=== PATIENT | male | born 1995 | race Two or more races ===

== ENCOUNTER 2023-01-10 14:13 | Outpatient (REF) | payer OTHER, SELFPAY ==
[2023-01-10 17:26] LABS: MANUAL DIFF FLAG NO
[2023-01-10 17:50] LABS: Alanine Aminotransferase 15 U/L (0-40); Albumin Level 4.4 g/dL (3.5-5.0); Alkaline Phosphatase 56 U/L (39-117); Anion Gap 13 (12-20); Aspartate Amino Transferase 19 U/L (5-37); Bilirubin Total 1.2 mg/dL (0.0-1.0); Blood Urea Nitrogen 19 mg/dL (9-16); Calcium 9.7 mg/dL (8.4-10.2); Carbon Dioxide 28 mmol/L (22-29); Chloride 105 mmol/L (96-108); Cholesterol 190 mg/dL (<200); Estimated Glomerular Filt Rate > 60; Glucose Fasting 76 mg/dL (60-99); HDL Cholesterol 40 mg/dL (>40); LDL Cholesterol Calculated 129 mg/dL (<100); Potassium 3.5 mmol/L (3.3-5.1); Sodium 142 mmol/L (135-145); Total Protein 7.4 g/dL (6.5-8.0); Triglycerides 105 mg/dL (<150)
[2023-01-10 18:04] LABS: TSH reflex Free T4 1.89 uIU/mL (0.32-4.0)
[2023-01-10 18:10] LABS: Basophils Absolute Auto 0.1 X10*3/uL (0.0-0.2); Basophils Percent Auto 0.9 % (0-2); Eosinophils Absolute Auto 0.1 X10*3/uL (0.0-0.4); Hemoglobin 15.4 g/dl (14.0-18.0); Imm Gran Abs Auto 0.02 X10*3/uL (0.00-0.03); Imm Gran Pct Auto 0.3 % (0.0-0.4); Lymphocytes Absolute Auto 2.5 X10*3/uL (1.2-4.9); Lymphocytes Percent Auto 32.5 % (20-40); Mean Corpuscular HGB Conc 33.5 g/dl (31.0-36.0); Mean Corpuscular Volume 98.7 fL (80.0-98.0); Mean Platelet Volume 12.8 fL (9.4-12.4); Monocytes Absolute Auto 0.6 X10*3/uL (0.1-1.2); Monocytes Percent Auto 7.5 % (2-11); Neutrophils Absolute Auto 4.5 x10*3/uL (2.0-8.3); Neutrophils Percent Auto 57.8 % (45-73); Platelet Count 251 X10*3/uL (160-400); Red Blood Count 4.66 X10*6/uL (4.60-5.80); Red Cell Distribution Width 11.9 % (11.0-16.0); White Blood Count 7.7 X10*3/uL (4.8-10.8)
[2023-01-11 13:56] LABS: CT PCR NOT DETECTED (Not Detect.); NG PCR NOT DETECTED (Not Detect.)
[2023-01-13 05:36] LABS: HIV AB/AG Nonreactive (Nonreactive); HIV Num 1 0.06 S/CO (0.00-0.99); ~HepC Num1 0.06 S/CO (0.00-0.79); ~Hepatitis C Antibody Nonreactive (Nonreactive)
[2023-01-13 05:46] LABS: Syphilis Screen Nonreactive (Nonreactive)
== END 2023-01-10 14:14 | disposition home or self-care (01) ==
LOC: HO.CHCLDS 14:13
PROVIDERS: Visit Provider Family Medicine
DX: Z11.4 Encounter for screening for human immunodeficiency virus [HIV] (principal); E66.9 Obesity, unspecified; Z68.31 Body mass index [BMI] 31.0-31.9, adult; Z20.2 Contact with and (suspected) exposure to infections with a predominantly sexual mode of transmission; Z13.29 Encounter for screening for other suspected endocrine disorder
CPT/HCPCS: 0353U; 80053; 80061; 84443; 85025; 86780; 86803; 87389

== ENCOUNTER 2023-06-02 14:57 | Outpatient (REF) | payer OTHER, SELFPAY ==
[2023-06-02 18:00] LABS: Anion Gap 10 (12-20); Blood Urea Nitrogen 14 mg/dL (9-16); Calcium 9.6 mg/dL (8.4-10.2); Carbon Dioxide 29 mmol/L (22-29); Chloride 107 mmol/L (96-108); Estimated Glomerular Filt Rate > 60; Glucose Random 87 mg/dL (60-115); Potassium 3.9 mmol/L (3.3-5.1); Sodium 142 mmol/L (135-145)
[2023-06-03 04:21] LABS: Syphilis Screen Nonreactive (Nonreactive)
[2023-06-03 04:41] LABS: HIV AB/AG Nonreactive (Nonreactive); HIV Num 1 0.05 S/CO (0.00-0.99); ~HepC Num1 0.12 S/CO (0.00-0.79); ~Hepatitis C Antibody Nonreactive (Nonreactive)
[2023-06-03 07:07] LABS: CT PCR NOT DETECTED (Not Detect.); NG PCR NOT DETECTED (Not Detect.)
== END 2023-06-02 14:58 | disposition home or self-care (01) ==
LOC: HO.CHCLDS 14:57
PROVIDERS: Visit Provider Family Medicine
DX: Z11.4 Encounter for screening for human immunodeficiency virus [HIV] (principal); Z20.2 Contact with and (suspected) exposure to infections with a predominantly sexual mode of transmission
CPT/HCPCS: 0353U; 36415; 80048; 86780; 86803; 87389

== ENCOUNTER 2023-07-31 10:44 | Outpatient (REF) | payer OTHER, SELFPAY ==
[2023-07-31 14:29] LABS: MANUAL DIFF FLAG NO
[2023-07-31 14:31] LABS: Basophils Absolute Auto 0.1 X10*3/uL (0.0-0.2); Basophils Percent Auto 0.7 % (0-2); Eosinophils Absolute Auto 0.1 X10*3/uL (0.0-0.4); Hematocrit 46.9 % (42.0-52.0); Imm Gran Abs Auto 0.02 X10*3/uL (0.00-0.03); Imm Gran Pct Auto 0.3 % (0.0-0.4); Lymphocytes Absolute Auto 1.8 X10*3/uL (1.2-4.9); Lymphocytes Percent Auto 25.2 % (20-40); Mean Corpuscular HGB Conc 34.1 g/dl (31.0-36.0); Mean Corpuscular Hemoglobin 33.9 pg (27.0-33.0); Mean Corpuscular Volume 99.4 fL (80.0-98.0); Mean Platelet Volume 12.5 fL (9.4-12.4); Monocytes Absolute Auto 0.5 X10*3/uL (0.1-1.2); Monocytes Percent Auto 7.6 % (2-11); Neutrophils Absolute Auto 4.6 x10*3/uL (2.0-8.3); Neutrophils Percent Auto 64.2 % (45-73); Platelet Count 252 X10*3/uL (160-400); Red Blood Count 4.72 X10*6/uL (4.60-5.80); Red Cell Distribution Width 12.2 % (11.0-16.0); White Blood Count 7.2 X10*3/uL (4.8-10.8)
[2023-07-31 14:53] LABS: Alanine Aminotransferase 22 U/L (0-40); Albumin Level 4.5 g/dL (3.5-5.0); Alkaline Phosphatase 75 U/L (39-117); Anion Gap 12 (12-20); Aspartate Amino Transferase 23 U/L (5-37); Bilirubin Total 0.8 mg/dL (0.0-1.0); Blood Urea Nitrogen 15 mg/dL (9-16); Calcium 9.5 mg/dL (8.4-10.2); Carbon Dioxide 25 mmol/L (22-29); Chloride 109 mmol/L (96-108); Cholesterol 160 mg/dL (<200); Estimated Glomerular Filt Rate > 60; Glucose Random 84 mg/dL (60-115); HDL Cholesterol 33 mg/dL (>40); LDL Cholesterol Calculated 109 mg/dL (<100); Potassium 3.8 mmol/L (3.3-5.1); Sodium 142 mmol/L (135-145); Total Protein 7.6 g/dL (6.5-8.0); Triglycerides 94 mg/dL (<150)
[2023-07-31 16:18] LABS: CT PCR NOT DETECTED (Not Detect.); NG PCR NOT DETECTED (Not Detect.)
[2023-08-01 04:28] LABS: Syphilis Screen Nonreactive (Nonreactive)
[2023-08-01 04:42] LABS: HBS Num1 0.56 mIU/mL (0-7.99); HBc Num1 0.11 S/CO (0.00-0.79); HBsAGNum1 0.51 S/CO (0.00-0.99); HIV AB/AG Nonreactive (Nonreactive); HIV Num 1 0.05 S/CO (0.00-0.99); Hepatitis B Core Antibody Nonreactive (Nonreactive); Hepatitis B Surface Antigen Negative (Negative); ~HepC Num1 0.12 S/CO (0.00-0.79); ~Hepatitis B Surface Antibody NONREACTIVE (Nonreactive); ~Hepatitis C Antibody Nonreactive (Nonreactive)
== END 2023-07-31 10:45 | disposition home or self-care (01) ==
LOC: HO.CHCLDS 10:44
PROVIDERS: Visit Provider Family Medicine
DX: Z11.3 Encounter for screening for infections with a predominantly sexual mode of transmission (principal); E66.9 Obesity, unspecified; Z68.31 Body mass index [BMI] 31.0-31.9, adult
CPT/HCPCS: 0353U; 36415; 80053; 80061; 85025; 86704; 86706; 86780; 86803; 87340; 87389

== ENCOUNTER 2024-09-02 10:58 | Outpatient (REF) | payer OTHER, SELFPAY ==
[2024-09-02 11:32] LABS: MANUAL DIFF FLAG NO
[2024-09-02 11:35] LABS: Basophils Percent Auto 0.7 % (0-2); Eosinophils Absolute Auto 0.1 X10*3/uL (0.0-0.4); Eosinophils Percent Auto 1.8 % (0-4); Hematocrit 47.3 % (42.0-52.0); Hemoglobin 16.5 g/dl (14.0-18.0); Imm Gran Abs Auto 0.01 X10*3/uL (0.00-0.03); Imm Gran Pct Auto 0.2 % (0.0-0.4); Lymphocytes Absolute Auto 1.7 X10*3/uL (1.2-4.9); Lymphocytes Percent Auto 36.4 % (20-40); Mean Corpuscular HGB Conc 34.9 g/dl (31.0-36.0); Mean Corpuscular Hemoglobin 33.8 pg (27.0-33.0); Mean Corpuscular Volume 96.9 fL (80.0-98.0); Monocytes Absolute Auto 0.4 X10*3/uL (0.1-1.2); Monocytes Percent Auto 7.9 % (2-11); Neutrophils Absolute Auto 2.4 x10*3/uL (2.0-8.3); Platelet Count 222 X10*3/uL (160-400); Red Blood Count 4.88 X10*6/uL (4.60-5.80); Red Cell Distribution Width 11.9 % (11.0-16.0); White Blood Count 4.6 X10*3/uL (4.8-10.8)
[2024-09-02 12:02] LABS: Alanine Aminotransferase 20 U/L (0-40); Albumin Level 4.5 g/dL (3.5-5.0); Alkaline Phosphatase 73 U/L (39-117); Anion Gap 10 (12-20); Aspartate Amino Transferase 23 U/L (5-37); Bilirubin Total 1.3 mg/dL (0.0-1.0); Blood Urea Nitrogen 15 mg/dL (9-16); Carbon Dioxide 26 mmol/L (22-29); Chloride 108 mmol/L (96-108); Cholesterol 170 mg/dL (<200); Estimated Glomerular Filt Rate > 60; Glucose Random 86 mg/dL (60-115); HDL Cholesterol 34 mg/dL (>40); LDL Cholesterol Calculated 115 mg/dL (<100); Potassium 3.9 mmol/L (3.3-5.1); Sodium 140 mmol/L (135-145); Total Protein 7.2 g/dL (6.5-8.0); Triglycerides 107 mg/dL (<150)
--- OUTSIDE RECORDS SUMMARY | 2024-09-02 13:03 | XMS_ITS | Clinical Summary ---
Author Organization [employer] [facility] ity Address [address] [place] [address] Care Team Providers Care Residential Care Officer Name Role Phone Unavailable Primary Care Provider Unavailabl e Social History Tobacco Use Types Packs/Day Years Used Date Smoking Tobacco: Never Assessed Sex and Gender Information Value Date Recorded Sex Assigned at Not on file Legal Sex Male 10:47 PM EST Gender Identity Not on file Sexual Orientation Not on file Plan of Treatment Health Maintenance Due Date Last Done Comments DTaP,Tdap,and Td Vaccines (1 - Tdap) 02/17/2012 Hepatitis B Vaccines (1 of 3 - 19+ 3-dose series) 02/17/2012 COVID-19 Vaccine (2023-2 5 season) 2023 Influenza Vaccine (Season Ended) 2024 HIB Vaccines Aged Out No longer eligi ble based on patient's age to complete this topic HPV Vaccines Aged Out No longer eligi ble based on patient's age to complete this topic Hepatitis A Vaccines Aged Out No long er eligible based on patient's age to complete this topic IPV Vaccines Aged Out No longer eligi ble based on patient's age to complete this topic MMR Vaccines Aged Out No longer eligi ble based on patient's age to complete this topic Meningococcal ACWY Vaccine Aged Out N o longer eligible based on patient's age to complete this topic Meningococcal B Vaccine Aged Out No l onger eligible based on patient's age to complete this topic Pneumococcal Vaccine: Pediat rics (0 to 5 Years) and At-Risk Patients (6 to 64 Years) Aged Out No longer eligible b ased on patient's age to complete this topic RSV Immunization Patients Un carrie 20 months Aged Out No longer eligible b ased on patient's age to complete this topic Varicella Vaccines Aged Out No longer eligible based on patient's age to complete this topic
[2024-09-03 08:30] LABS: HBS Num1 0.54 mIU/mL (0-7.99); HBc Num1 0.07 S/CO (0.00-0.79); HBsAGNum1 0.45 S/CO (0.00-0.99); HIV AB/AG Nonreactive (Nonreactive); HIV Num 1 0.06 S/CO (0.00-0.99); Hepatitis B Core Antibody Nonreactive (Nonreactive); Hepatitis B Surface Antigen Negative (Negative); ~HepC Num1 0.15 S/CO (0.00-0.79); ~Hepatitis B Surface Antibody NONREACTIVE (Nonreactive); ~Hepatitis C Antibody Nonreactive (Nonreactive)
[2024-09-03 08:45] LABS: Syphilis Screen Nonreactive (Nonreactive)
== END 2024-09-02 10:59 | disposition home or self-care (01) ==
LOC: HO.CHCLDS 10:58
PROVIDERS: Visit Provider Family Medicine
DX: Z00.00 Encounter for general adult medical examination without abnormal findings (principal); Z20.2 Contact with and (suspected) exposure to infections with a predominantly sexual mode of transmission
CPT/HCPCS: 36415; 80053; 80061; 85025; 86704; 86706; 86780; 86803; 87340; 87389

== ENCOUNTER 2025-01-07 10:10 | Outpatient (REF) | payer OTHER, SELFPAY ==
--- OUTSIDE RECORDS SUMMARY | 2025-01-07 11:31 | XMS_ITS | Encounter Summary ---
Author Organization [employer] Address [address] [place] [address] 7 [place] [address] Care Team Providers Care Multicultural Services Librarian Name Role Phone Natalya Mahajan MD Primary Care Provider [phone] Reason for Visit * Reason Comments Med Refill Encounter Details Date Type Department Care Team (Late st Contact Info) Description 08/20/2022 Refill [facility] MED & PEDS [address] [place], [place] [phone] Natalya Mahajan MD [address] [place] [address] Social History Tobacco Use Types Packs/Day Years Used Date Smoking Tobacco: Never Assessed Depression Answer Date Recorded Patient Health Questionnaire-9 Score 0 07/29/2022 Depression Answer Date Recorded Patient Health Questionnaire-2 Score 0 07/29/2022 Sex and Gender Information Value Date Recorded Sex Assigned at Male 01/07/2022 10:39 AM EDT Legal Sex Male 10:39 AM EDT Gender Identity Male 01/07/2022 10:39 AM EDT Sexual Orientation Bisexual 01/07/2022 10 :39 AM EDT COVID-19 Exposure Response Date Recorded In the last 10 days, have yo u been in contact with someone who was confirmed or suspected to have Coronavirus/COVID-19? No / Unsure 07/29/2022 10:11 AM EDT documented as of this encounter Plan of Treatment Not on file documented as of this encounter Visit Diagnoses Not on filedocumented in this encounter Additional Health Concerns Assessment Noted Time PHQ-9 Depression Total Score: 0 07/30/19 23 10:23 AM EDT documented as of this encounter Care Teams Multicultural Services Librarian Relationship Specialty Start Date End Date Natalya Mahajan MD [address] [place] [address] PCP - General Family Medicine 11/14/20 documented as of this encounter
--- OUTSIDE RECORDS SUMMARY | 2025-01-07 11:31 | XMS_ITS | Encounter Summary ---
Author Organization [employer] Address [address] [facility] 7 [place] [address] Care Team Providers Care High School Science Tutor Name Role Phone Natalya Mahajan MD Primary Care Provider [phone] Reason for Visit * Reason Comments Med Refill Encounter Details Date Type Department Care Team ([facility] st Contact Info) Description 11/29/2023 Refill [facility] CHC MED & PEDS [address] [place], [place] [phone] Natalya Mahajan MD [address] [place] [address] Social History Tobacco Use Types Packs/Day Years Used Date Smoking Tobacco: Never Passive Smoke Exposure: Never Smokeless Tobacco: Never Alcohol Use Standard Drinks/Week Comments Never 0 (1 standard drink = 0.6 oz pur e alcohol) Depression Answer Date Recorded Patient Health Questionnaire-9 Score 0 07/29/2022 Housing Stability Answer Date Recorded What is your housing situation today? I have jake bear 01/01/[address] you li ve. Do you have problems with any of the following? None of the above 01/01/2023 Food Insecurity Answer Date Recorded Within the past 12 months, y ou worried that your food would run out before you got money to buy more: Never True 01/01/2023 Within the past 12 months,th e food you bought just didn't last and you didn't have enough money to get more: Never True Transportation Answer Date Recorded In the past 12 months, has l ack of transportation kept you from medical appts, meetings, work or from getting things needed for daily living? No 01/01/2023 Utilities Answer Date Recorded In the past 12 months, has t he electric, gas, oil or water company threatened to shut off services in your home? No 01/01/2023 Depression Answer Date Recorded Patient Health Questionnaire-2 Score 0 07/29/2022 Sex and Gender Information Value Date Recorded Sex Assigned at Male 01/07/2022 10:39 AM EDT Legal Sex Male 10:39 AM EDT Gender Identity Male 01/07/2022 10:39 AM EDT Sexual Orientation Bisexual 01/07/2022 10 :39 AM EDT documented as of this encounter Miscellaneous Notes * Telephone Encounter - Natalya Mahajan MD - 12/02/2023 11:22 AM EDT Already sent * Telephone Encounter - Natalya Mahajan MD - 12/02/2023 11:22 AM EDT I was already sent documented in this encounter Plan of Treatment Not on file documented as of this encounter Visit Diagnoses Not on filedocumented in this encounter Additional Health Concerns Assessment Noted Time PHQ-9 Depression Total Score: 0 07/30/19 23 10:23 AM EDT documented as of this encounter Care Teams High School Science Tutor Relationship Specialty Start Date End Date Natalya Mahajan MD [address] [place] [address] PCP - General Family Medicine 11/14/20 documented as of this encounter
--- OUTSIDE RECORDS SUMMARY | 2025-01-07 11:31 | XMS_ITS | Encounter Summary ---
Author Organization [employer] Address [address] [facility] 7 [place] [address] Care Team Providers Care Mate First Name Role Phone Natalya Mahajan MD Primary Care Provider [phone] Encounter Details Date Type Department Care Team (Late st Contact Info) Description 05/05/2024 Orders Only [facility] MEDICINE [address] [place], [place] [phone] Morenita Laureano NP [address] [place], [place] [phone] Social History Tobacco Use Types Packs/Day Years Used Date Smoking Tobacco: Never Passive Smoke Exposure: Never Smokeless Tobacco: Never Alcohol Use Standard Drinks/Week Comments Never 0 (1 standard drink = 0.6 oz pur e alcohol) Depression Answer Date Recorded Patient Health Questionnaire-9 Score 0 07/29/2022 Housing Stability Answer Date Recorded What is your housing situation today? I have jakeraffaele bear 01/01/[address] you [...] documented as of this encounter Care Teams Mate First Relationship Specialty Start Date End Date Natalya Mahajan MD [address] [place] [address] PCP - General Family Medicine 11/14/20 documented as of this encounter
--- OUTSIDE RECORDS SUMMARY | 2025-01-07 11:31 | XMS_ITS | Encounter Summary ---
Author Organization [employer] Address [address] [facility] [address] [place] [address] Care Team Providers Care Scallop Shucker Name Role Phone Natalya Mahajan MD Primary Care Provider [phone] Reason for Visit * Reason Onset Date Comments Nurse Triage 01/14/2024 Encounter Details Date Type Department Care Team ([facility] st Contact Info) Description 01/14/2024 Telephone [facility] CHC MED & PEDS [address] [place] [address] Natalya Mahajan MD [address] [place] [address] Nurse Triage Social History Tobacco Use Types Packs/Day Years [...] encounter Miscellaneous Notes * Telephone Encounter - Deedee Marlow RN - 01/14/2024 12:13 PM EST Triage call [place] [id number]. Pt is at work during call with noise making it diffcult to hear at times. Pt reports a skin lump/rash on right side , hip area, left leg , thigh/knee . Pt describes this as several lumps , red, bumpyareas and when scratched they become large. Pt reports these areas are very itchy like cracking skin . Pt reports has had this before and it was told to Pt it was fungal in nature. Pt is requesting to be seen by provider. Pt is advised to come to [facility] today open till 8pm. Address [address] [facility] in [place] . Pt agrees with this disposition . Insurance is verified as active. Protocol Used: Rash or Redness - Localized (Adult) Protocol-Based Disposition: See in Office or Video Visit within 3 Days Video visit not offered Positive Triage Question: * Localized rash present > 7 days * All higher-acuity triage questions were negative Care Advice Discussed: * Reassurance and Education - Mild Localized Rash * Reasons To Call Back - Rash spreads or becomes worse - Rash lasts longer than 1 week - You become worse * Telephone Encounter - Megan Rosado - 01/14/2024 11:28 AM EST Symptom: Skin Lump Outcome: Schedule an appointment to be seen within 3 days Reason: Caller denied all higher acuity questions The caller accepted this outcome. documented in this encounter Plan of Treatment Not on file documented as of this encounter Visit Diagnoses Not on filedocumented in this encounter Additional Health Concerns Assessment Noted Time PHQ-9 Depression Total Score: 0 07/30/19 23 10:23 AM EDT documented as of this encounter Care Teams Scallop Shucker Relationship Specialty Start Date End Date Natalya Mahajan MD [address] [place] [address] PCP - General Family Medicine 11/14/20 documented as of this encounter
--- OUTSIDE RECORDS SUMMARY | 2025-01-07 11:31 | XMS_ITS | Encounter Summary ---
Author Organization [employer] Address [address] [facility] [address] [place] [address] Care Team Providers Care Trolley Car Operator Name Role Phone Natalya Mahajan MD Primary Care Provider [phone] Encounter Details Date Type Department Care Team (Late st Contact Info) Description 04/13/2024 Orders Only [facility] MEDICINE [address] [place], [place] [phone] Katarina Hopkins MD [address] [place], [place] [phone] Social History Tobacco Use Types Packs/Day Years [...] documented as of this encounter Care Teams Trolley Car Operator Relationship Specialty Start Date End Date Natalya Mahajan MD [address] [place] [address] PCP - General Family Medicine 11/14/20 documented as of this encounter
--- OUTSIDE RECORDS SUMMARY | 2025-01-07 11:31 | XMS_ITS | Encounter Summary ---
Author Organization [employer] Address [address] [facility] [address] [place] [address] Care Team Providers Care Order Processing Clerk Name Role Phone Natalya Mahajan MD Primary Care Provider Reason for Visit * Reason Onset Date Comments Appointment Request 05/28/2024 Encounter Details Date Type Department Care Team ([facility] Contact Info) Description 05/28/2024 Telephone [facility] MEDICINE [address] [place] [address] Natalya Mahajan MD [address] [place] [address] Appointment Request Social History Tobacco Use Types Packs/Day Years [...] encounter Miscellaneous Notes * Telephone Encounter - Julio Cesar Ram - 06/08/2024 11:18 AM EDT Tc from pt requesting any update in prior message PLEASE return call [phone] * Telephone Encounter - Brigido Street - 06/03/2024 3:48 PM EDT Tc from pt returning call regarding prior message. Contact pt at [phone] * Telephone Encounter - Julio Cesar Ram - 06/03/2024 3:45 PM EDT Tc from pt returning call stating no one has return call from 06/02 * Telephone Encounter - Susan Jones - 06/02/2024 11:57 AM EDT Tc from pt requesting a call back. * Telephone Encounter - Susan Jones - 05/28/2024 10:35 AM EDT Tc from pt requesting schedule physical appt. Recall may. Pcp nahum. documented in this encounter Plan of Treatment Not on file documented as of this encounter Visit Diagnoses Not on filedocumented in this encounter Additional Health Concerns Assessment Noted Time PHQ-9 Depression Total Score: 0 07/30/19 23 10:23 AM EDT documented as of this encounter Care Teams Order Processing Clerk Relationship Specialty Start Date End Date Natalya Mahajan MD [address] [place] [address] PCP - General Family Medicine 11/14/20 documented as of this encounter
--- OUTSIDE RECORDS SUMMARY | 2025-01-07 11:31 | XMS_ITS | Clinical Summary ---
Author Organization [employer] Address [address] [facility] 7 [place] [address] Care Team Providers Care Supervisor [employer] Name Role Phone Natalya Mahajan MD Primary Care Provider [phone] Allergies No known active allergies Medications cholecalciferol (Vitamin D-3) 50 MCG (1999 UT) tablet Take 1 tablet by mouth at bed time. 2 Active cetirizine (ZyrTEC) 10 MG tablet Take 1 tablet (10 mg) by mouth in the morning. 30 tablet 3 Active doxycycline (Vibra-Tabs) 100 MG tablet Take 2 tablets by mouth immediately after exposure to infection. do not take if more than 72 hours have passed. No more than 200mg should be taken in 24 hours. 30 tablet 5 Active phentermine (Adipex-P) 37.5 MG tabletIndication s:Class 1 obesity with body mass index (BMI) of 31.0 to 31.9 in adult, unspecified obesity type, unspecified whether serious comorbidity present Take 0.5 tablets (18.75 mg) by mouth before breakfast. 14 tablet 2 5 Active topiramate (Topamax) 50 MG tabletIndication s:Class 1 obesity with body mass index (BMI) of 31.0 to 31.9 in adult, unspecified obesity type, unspecified whether serious comorbidity present Take 1 tablet (50 mg) by mouth at bedtime. 90 tablet 5 Active triamcinolone (Kenalog) 0.1 % creamIndications :Prickly heat Apply topically if needed in the morning and at bedtime (pain and swelling). 30 g 5 Active emtricitabine-te nofovir DF (Truvada) 200-300 MG tabletIndication s:Screening examination for STD (sexually transmitted disease) Take 1 tablet by mouth Once per day. 90 tablet 5 Active Active Problems Problem Noted Date Diagnosed Date Family history of colon cancer 09/02/2024 Assessment & Plan (09/02/2024 12:45 PM EDT): Patient reports a significant family history of colon cancer, primarily on the paternal grandfather's side. Multiple family members have been affected, mostly after the age of 50. Given the patient's age (29) and the reported age of onset in family members (>50), immediate screening is not indicated, but close monitoring and genetic counseling may be beneficial. Plan: - Referral to pharmaceutical worker for evaluation and potential screening recommendations - Await pharmaceutical worker's opinion for any further screening or interventions Exposure to sexually transmitted disease (STD) 0 05/04/2024 Rotator cuff impingement syndrome of right shoul carrie 07/31/2023 Assessment & Plan (08/05/2023 9:42 AM EDT): R shoulder decr internal rotation, send for X ray and PT, if no improvement consider referral to orthopedics On pre-exposure prophylaxis for HIV 06/04/2023 Assessment & Plan (06/04/2023 4:28 PM EDT): Jose D Murphy is a 28 y.o. year old male with history of contact with or potential exposure to HIV and other STIs through [a sexual mode of transmission/IV drug use] presenting to clinic to continue HIV PrEP. - Tolerating HIV PrEP without significant side effects - Screening labs reviewed and without significant abnormalities - No contraindications to continued HIV PrEP - Patient confirms agreement to regular follow-up, laboratory testing, and daily medication compliance - Will obtain routine monitoring labs for HIV, kidney function, and appropriate STI (see below) - If no lab abnormalities, CONTINUE truvada, 90 day supply given, no refills authorized without an appointment - Patient to call if any delay or difficulty in continuing medication - Patient advised to return to clinic for HIV testing and follow-up if experiencing any acute HIV symptoms (fever, myalgia, fatigue, rash, sore throat, swollen lymph nodes, diarrhea, night sweats) or any concern for HIV exposure. - HIV and other STI risk reduction reviewed - Follow-up in 3 months with [facility] for routine surveillance of HIV PrEP Rash of body 01/07/2023 Assessment & Plan (01/07/2023 2:12 PM EDT): Patient with complaints of a rash will be Rx Prednisone, Cetrizine, Benadryl, and Kenalog ointment to treat concern. Class 1 obesity with body ma ss index (BMI) of 31.0 to 31.9 in adult 07/31/2022 Assessment & Plan (09/02/2024 12:44 PM EDT): Prescribe phentermine in combination with current Topamax for weight management - Informed patient about potential side effects: anxiety, increased blood pressure, headache, confusion, memory problems - Instructed to discontinue if experiencing these side effects - Follow-up appointment in 6 weeks to assess medication efficacy - Re-evaluate weight every 3 months Assessment & Plan (08/05/2023 9:42 AM EDT): Discussed calorie deficit, recommended reduction of 20-30% of maintenance calories; speech therapist early intervention referral offered. Recommended to decrease soda and sugary beverage consumption. Recommended at least 20 g per meal of protein to assist with satiety. Recommended at least 150 min/week of moderate intensity exercise. Assessment & Plan (01/07/2023 2:12 PM EDT): Discussed calorie deficit, recommended reduction of 20-30% of maintenance calories; speech therapist early intervention referral offered. Recommended to decrease soda and sugary beverage consumption. Recommended at least 20 g per meal of protein to assist with satiety. Recommended at least 150 min/week of moderate intensity exercise. -Labs: CBC, Met. Panel, Lipid Panel, TSH/FT4 Assessment & Plan (07/31/2022 9:12 AM EDT): Phentermine/topamax: 8/50 mg. Discussed side effects-> tachycardia, HTN, teratogenic, cognitive dysfuction, metabolic acidosis, constipation, dysgeusia. Denies hx of , hyperthyroidism, MAOI use or glaucoma. Denies hx of kidney stones. Physical exam, annual 07/31/2022 Assessment & Plan (09/02/2024 12:44 PM EDT): 29 y.o. male here for annual physical examination Reviewed BMI and BP with patient. Nutritional recommendations: Recommended to decrease soda and sugary beverage consumption. Recommended at least 20 g per meal of protein to assist with satiety. Exercise recommendations: Recommended at least 150 min/week of moderate intensity exercise. BH screen done and reviewed Care Gaps reviewed IZ reviewed and discussed w/ patient Updated/reviewed PMH, Surghx, Family Hx & Social Hx Assessment & Plan (08/05/2023 9:43 AM EDT): Reviewed HM and vaccinations with patient, declined influenza. Will hold off Hep B until labs. Will send screening labs. Pt on Truvada. Assessment & Plan (01/07/2023 2:12 PM EDT): -Will be send for STI/STD Labs: Syphilis, HIV-1/2, Hep.C, Chalm./Gono. RNA Grade II hemorrhoids 06/25/2022 Assessment & Plan (06/25/2022 6:29 PM EDT): Will order docusate and will provide preparation H, told to increase fiber, maintain well hydrated, avoid constipation, no evidence of bleeding, not ulcerated Encounters Date Type Department Care Team Description 01/07/2025 Orders Only [facility] MEDICINE [address] [place] [address] Margie Omalley, RN On pre-exposure prophylaxis for HIV 10/22/2024 Telephone [facility] & PEDS [address] [place], [place] [phone] Natalya Mahajan MD No Show from Last 3 Months Immunizations Immunization Administration Dates Next Due Hep A, Adult 07/31/2023,11/24/2020 HepB-CpG 09/20/2024 Tdap 07/31/2023 Family History Medical History Relation Name Comments Breast cancer Paternal Grandmother Relation Name Status Comments Paternal Grandmother Social History Tobacco Use Types Packs/Day Years Used Date Smoking Tobacco: Never Passive Smoke Exposure: Never Smokeless Tobacco: Never Tobacco Cessation:Counseling Given: Not Answered Alcohol Use Standard Drinks/Week Comments Never 0 (1 standard drink = 0.6 oz pur e alcohol) Depression Answer Date Recorded Patient Health Questionnaire-9 Score 0 09/02/2024 Patient Health Questionnaire-9 Score 0 09/02/2024 Last PHQ-9: Questionnaire Data Not on file 0 09/02/2024 Housing Stability Answer Date Recorded What is your housing situation today? I have jake bear 09/02/[address] you li ve. Do you have problems with any of the following? None of the above 09/02/2024 Food Insecurity Answer Date Recorded Within the past 12 months, y ou worried that your food would run out before you got money to buy more: Never True 09/02/2024 Within the past 12 months,th e food you bought just didn't last and you didn't have enough money to get more: Never True Transportation Answer Date Recorded In the past 12 months, has l ack of transportation kept you from medical appts, meetings, work or from getting things needed for daily living? No 09/02/2024 Utilities Answer Date Recorded In the past 12 months, has t he electric, gas, oil or water company threatened to shut off services in your home? No 09/02/2024 Depression Answer Date Recorded Patient Health Questionnaire-2 Score 0 09/02/2024 Internet Access Answer Date Recorded Internet Access Q1 Yes 09/02/2024 Internet Access Q2 Not on file 09/02/2024 Sex and Gender Information Value Date Recorded Sex Assigned at Male 01/07/2022 10:39 AM EDT Legal Sex Male 10:39 AM EDT Gender Identity Male 01/07/2022 10:39 AM EDT Sexual Orientation Bisexual 01/07/2022 10 :39 AM EDT Last Filed Vital Signs Vital Sign Reading Time Taken Comments Blood Pressure 118/76 09/02/2024 9:58 AM EDT Pulse 78 09/02/2024 9:58 AM EDT Temperature 36.7 C (98 F) 09/02/2024 9:58 AM EDT Respiratory Rate 20 09/02/2024 9:58 AM EDT Oxygen Saturation 98% 09/02/2024 9:58 AM EDT Inhaled Oxygen Concentration - - Weight 81.4 kg (179 lb 6.4 oz) 09/02/2024 9:58 A M EDT Height 160 cm (5' 3 ) 09/02/2024 9:58 AM EDT Body Mass Index 31.78 09/02/2024 9:58 AM EDT Plan of Treatment Health Maintenance Due Date Last Done Comments Disability Screening 1993 Family Planning (PISQ) 02/17/2008 HPV Vaccines (1 - Male 3-dose series) 02/17/2008 Hepatitis B Vaccines (2 of 2 - CpG 2-dose series) 10/18/2024 09/20/2024 COVID-19 Vaccine (1 - season) 2024 Influenza Vaccine (#1) 2024 Alcohol/Substance Use Screening 09/02/2025 09/02/2024 Depression Screening 09/02/2025 09/02/2024, 09/03/19 25 SDOH Screening 09/02/2025 09/02/2024 Tobacco Screening 09/02/2025 09/02/2024 Lipid Panel 09/02/2029 09/02/2024, 052 05/2023, 01/10/2023, Additional history exists DTaP/Tdap/Td Vaccines (2 - Td or Tdap) 07/30/2033 07/31/2023 Zoster Vaccines (1 of 2) 2043 RSV Patients and Patients Aged 60 years or older (1 - 1-dose 75+ series) 02/17/2068 Hepatitis A Vaccines Completed 07/31/2023, 11/25/19 21 HIV Screening Completed 09/02/2024, 04/0 06/2024, 03/12/2024, Additional history exists Hepatitis C Screening Completed 09/02/2024 , 06/11/2024, 03/12/2024, Additional history exists HIB Vaccines Aged Out No longer eligi ble based on patient's age to complete this topic IPV Vaccines Aged Out No longer eligi ble based on patient's age to complete this topic Meningococcal B Vaccine Aged Out No l onger eligible based on patient's age to complete this topic Meningococcal Vaccine Aged Out No damien nata eligible based on patient's age to complete this topic Pneumococcal Vaccine: Pediatrics (0 to 5 Years) and At-Risk Patients (6 to 49) Years Aged Out No longer eligible based on patient's age to complete this topic RSV under 20 months Aged Out No longe r eligible based on patient's age to complete this topic Rotavirus Vaccines Aged Out No longer eligible based on patient's age to complete this topic Procedures Procedure Name Priority Date/Time Associated Diagnosis Comments HEPATITIS C AB W/REFL TO HCV RNA, QN, PCR Routine 09/02/2024 11:00 AM EDT Exposure to sexually transmitted disease (STD) HIV 1/2 ANTIGEN/ANTIBODY, FOURTH GENERATION W/RFL Routine 09/02/2024 11:00 AM EDT Exposure to sexually transmitted disease (STD) LIPID PANEL, STANDARD Routine 09/02/2024 11:00 AM EDT Physical exam, annual from Last 3 Months or Most Recently Relevant to Health Maintenance Results * Hepatitis C Antibody with Reflex to HCV, RNA, Quantitative, Real-Time PCR (09/02/2024 11:00 AM EDT) Hepatitis C Antibody Nonreactive Nonreactive [facility] Comment:Antibodies to HCV no t detected; does not exclude early acuteHCV infection. Blood Venous blood specimen / Unknown 09/02/2024 11:00 AM EDT 09/02/2024 11:27 AM EDT us Natalya Mahajan MD LAB BLOOD ORDERABLES Final Re sult [facility] [address] [place] [phone] * HIV-1/2 Antigen and Antibodies, Fourth Generation, with Reflexes (09/02/2024 11:00 AM EDT) HIV AB/AG Nonreactive Nonreactive [facility] Comment:HIV-1 p24 Ag and/or HIV-1/HIV-2 Ab not detected.A test result that is nonreactive does not exclude thepossibility of exposure to or infection with HIV-1 and/orHIV-2. Nonreactive results in this assay for individualswith prior exposure to HIV-1 and/or HIV-2 may be due toantigen and antibody levels that are below the limit ofdetection of this assay.The [employer] HIV Ag/Ab Combo assay result andsupplemental assay results should be interpreted inconjunction with the patient's clinical presentation,history and other laboratory results. If the results areinconsistent with clinical evidence, additional testing issuggested to confirm the result. Blood Venous blood specimen / Unknown 09/02/2024 11:00 AM EDT 09/02/2024 11:27 AM EDT us Natalya Mahajan MD LAB BLOOD ORDERABLES Final Re sult [facility] [address] [place] [phone] * (ABNORMAL) Lipid Panel, Standard (09/02/2024 11:00 AM EDT) Triglycerides 107 <150 mg/dL [facility] Comment:Desirable Triglyceri de: less than 150 mg/dLBorderline High Triglyceride 150-199 mg/dLHigh Triglyceride: 200-499 mg/dLVery High Triglyceride: greater than or equal to 5OO mg/dL Cholesterol 170 <200 mg/dL [facility] Comment:Desirable Cholestero l: less than 200 mg/dLBorderline High Cholesterol: 200-239 mg/dLHigh Cholesterol: greater than 239 mg/dL LDL Cholesterol Calculated 115(H) <100 mg/dL [facility] Comment:Desirable LDL: less than 100 mg/dLNear Optimal/Above Optimal LDL: 110- 129 mg/dLBorderline High LDL: 130-159 mg/dLHigh LDL: 160-189 mg/dLVery High LDL: greater than or equal to 190 mg/dL HDL Cholesterol 34(L) >40 mg/dL [facility] Comment:Desirable HDL: great er than 40 mg/dL Note: This HDL assay may give artificially low results in patients with liver disease. Blood Venous blood specimen / Unknown 09/02/2024 11:00 AM EDT 09/02/2024 11:27 AM EDT us Natalya Mahajan MD LAB BLOOD ORDERABLES Final Re sult [facility] [address] [place] [phone] from Last 3 Months or Most Recently Relevant to Health Maintenance Insurance Care Teams Supervisor [employer] Relationship Specialty Start Date End Date Natalya Mahajan MD [address] [place] [phone] PCP - General Family Medicine 11/14/20
--- OUTSIDE RECORDS SUMMARY | 2025-01-07 11:31 | XMS_ITS | Encounter Summary ---
Author Organization [employer] Address [address] [facility] [address] [place] [address] Care Team Providers Care Director Emergency Department Name Role Phone Natalya Mahajan MD Primary Care Provider [phone] Encounter Details Date Type Department Care Team ([facility] st Contact Info) Description 01/07/2025 Orders Only [facility] MEDICINE [address] [place], [place] [phone] Margie Omalley RN [address] [place] [address] On pre-exposure prophylaxis for HIV Social History Tobacco Use Types Packs/Day Years [...] as of this encounter Plan of Treatment Scheduled Orders Name Type Priority Associated Diagnoses Orde r Schedule Comprehensive Metabolic Panel Lab Routine On pre-exposure prophylaxis for HIV Expected: 01/07/2025 (Approximate), Expires: 01/07/2026 Chlamydia/Trichomonas/Neis seria gonorrhoeae, PCR, Urine Lab Routine On pre-exposure prophylaxis for HIV Expected: 01/07/2025 (Approximate), Expires: 01/07/2026 Hepatic Function Panel Lab Routine On pre-exposure prophylaxis for HIV Expected: 01/07/2025 (Approximate), Expires: 01/07/2026 Hepatitis C Antibody with Reflex to HCV, RNA, Quantitative, Real-Time PCR Lab Routine On pre-exposure prophylaxis for HIV Expected: 01/07/2025 (Approximate), Expires: 01/07/2026 RPR (Monitor) with Reflex to Titer Lab Routine On pre-exposure prophylaxis for HIV Expected: 01/07/2025 (Approximate), Expires: 01/07/2026 HIV-1/2 Antigen and Antibodies, Fourth Generation, with Reflexes Lab Routine On pre-exposure prophylaxis for HIV Expected: 01/07/2025 (Approximate), Expires: 01/07/2026 Hepatitis C Antibody with Reflex to HCV, RNA, Quantitative, Real-Time PCR Lab Routine On pre-exposure prophylaxis for HIV Expected: 01/07/2025 (Approximate), Expires: 01/07/2026 documented as of this encounter Visit Diagnoses Diagnosis On pre-exposure prophylaxis for HIV documented in this encounter Additional Health Concerns Assessment Noted Time PHQ-9 Depression Total Score: 0 06/26/20 25 9:59 AM EDT documented as of this encounter Care Teams Director Emergency Department Relationship Specialty Start Date End Date Natalya Mahajan MD [address] [place] [phone] PCP - General Family Medicine 11/14/20 documented as of this encounter
[2025-01-07 11:55] LABS: Alanine Aminotransferase 68 U/L (0-40); Albumin Level 5.1 g/dL (3.5-5.0); Alkaline Phosphatase 82 U/L (39-117); Anion Gap 11 (12-20); Aspartate Amino Transferase 38 U/L (5-37); Blood Urea Nitrogen 17 mg/dL (9-16); Calcium 9.7 mg/dL (8.4-10.2); Carbon Dioxide 28 mmol/L (22-29); Chloride 106 mmol/L (96-108); Estimated Glomerular Filt Rate > 60; Potassium 3.9 mmol/L (3.3-5.1); Sodium 141 mmol/L (135-145); Total Protein 8.3 g/dL (6.5-8.0)
[2025-01-07 12:10] LABS: HIV Num 1 0.08 S/CO (0.00-0.99); ~HepC Num1 0.12 S/CO (0.00-0.79); ~Hepatitis C Antibody Nonreactive (Nonreactive)
== END 2025-01-07 10:11 | disposition home or self-care (01) ==
LOC: HO.HHCL 10:10
PROVIDERS: PCP Family Medicine; Visit Provider Family Medicine
DX: Z11.4 Encounter for screening for human immunodeficiency virus [HIV] (principal); Z11.59 Encounter for screening for other viral diseases; Z79.899 Other long term (current) drug therapy
CPT/HCPCS: 36415; 80053; 82248; 86592; 86803; 87389